=== PATIENT | female | born 1975 | race Caucasian/White ===

== ENCOUNTER 2020-04-06 13:30 | Emergency (ER) | payer OTHER, SELFPAY ==
[~2020-04-06] VITALS: Ht 165.1 cm; Wt 92.5 kg
[2020-04-06 13:33] VITALS: Ht 165.1 cm; Wt 92.5 kg
[2020-04-06 15:02] VITALS: BP 130/78
== END 2020-04-06 15:02 | disposition home or self-care (01) ==
LOC: ED 13:30
DX: U07.1 COVID-19 (principal); J45.909 Unspecified asthma, uncomplicated; Z90.710 Acquired absence of both cervix and uterus
CPT/HCPCS: U0003